=== PATIENT | female | born 1940 | race Caucasian/White ===

== ENCOUNTER → 2019-09-01 15:19 | Outpatient (CLI) | payer MEDICARE, SELFPAY ==
[2019-09-01 17:47] LABS: Anion Gap 12.2 mEq/L (5-15); Blood Urea Nitrogen 27 mg/dl (7-17); Calcium 9.4 mg/dl (8.4-10.2); Carbon Dioxide 24 mmol/L (22.0-30.0); Chloride 103 mmol/L (98-107); Estimated Glomerular Filt Rate 40 ml/min (>60); GFR (African American) 48 ML/MIN (>60); Glucose 120 mg/dl (74-100); Potassium 4.2 mmoL/L (3.5-5.1); Sodium 135 mmol/L (136-145)
== END ==
PROVIDERS: Visit Provider Internal Medicine
DX: R18.8 Other ascites (principal)
CPT/HCPCS: 36415; 80048

== ENCOUNTER 2019-09-09 16:00 | Outpatient (RCR) | payer MEDICARE, SELFPAY ==
--- NOTE | 2019-08-11 09:24 | HMH.PTOPWND ---
Rehab Outpt Wound Evaluation Rehab OP Wound Evaluation Start: 08/11/19 09:06 Freq: Status: Active Protocol: Document 08/11/19 09:06 CHLOEFARNAZ (Rec: 08/11/19 09:23 [email or web address] [id number]) Electronically Signed By Marko Suresh, KELLEN 08/11/19 09:06 Subjective/History History History This is the intial wound clinic evaluation for Jocelyn Rodriguez. Pt is a 79 y/o female referred to wound clinic for care of 2 non- healing wounds on L foot. Pt reports wounds opened up ~ mid -june. Pt reports her DPM has been treating them but wants pt to cont w/ wound care . Subjective Subjective Pt reports she is diabetic and has PIZANO, w/ low platelet count. Pt reports her last A1C was 6.6. Wound Eval Subjective History Subjective diabetic foot ulcers on L foot opened around Jun 23 Wound Left Lower Great Toe Wound Type Diabetic Foot Ulcer Wound Length (cm) 1.0 Wound Width (cm) 0.7 Wound Bed Appearance Dusky Red Percentage Granulated (%) 100 Wound Margins Description Roll Under Edges Undermining Position 12-12 Undermining Depth (cm) 0.3 Drainage Description Sanguineous Drainage Amount Scant Drainage Odor No Odor Dressing Status Dry & Intact Wound Topical Solution/Irrigant Antibiotic Irrigant Primary Dressing Silver Dressing Comment tegederm ag mesh Wound Secondary Dressing Type Absorbant Pad Comment optifoam border light Wound Debridement Method Sharps Wound Debridement Amount of Tissue Minimal Removed Wound Debridement Result Stopped Due to Bleeding Dressing Change Date 08/11/19 Dressing Change Patient Tolerance Tolerated Well Left Lateral Foot Wound Type Diabetic Foot Ulcer Is This a Chronic Wound Yes Wound Length (cm) 2.0 Wound Width (cm) 1.5 Wound Bed Appearance Dusky Red,Necrotic,Undermining Percentage Granulated (%) 50 Percentage of Eschar (Black) (%) 50 Wound Margins Description undermining callus Undermining Position 12-12 Undermining Depth (cm) 0.3 Surrounding Tissue Temperature Warm Drainage Description Sanguineous
== END 2019-09-09 17:00 | disposition home or self-care (01) ==
LOC: PT 16:00
PROVIDERS: PCP Nurse Practitioner Family; Visit Provider Nurse Practitioner Family
DX: L97.529 Non-pressure chronic ulcer of other part of left foot with unspecified severity (principal)
CPT/HCPCS: 29580; 97140; 97161; 97597

== ENCOUNTER → 2019-11-25 11:24 | Outpatient (CLI) | payer MEDICARE, SELFPAY ==
--- NOTE | 2019-11-25 | CA_ITS ---
APPROVED REPORT Right Lower Extremity Venous Study for DVT. Celery Wrapper: JOYCE Indications Lower Extremity Pain: Right Lower Extremity Edema: Right Ulcer Lower Extremity Swelling: Right Patient went for wound care today for a ulcer on left foot. Therapist noted increased edema and notified physician. Venous doppler was ordered to rule out DVT. Patient is morbidly obese and had difficulty tolerating compression throughout exam. Limited scanning. Risk Factors Immobility Obesity Vein Imaging FEM (L): compressive, spontaneous, phasic, augmentation POP (L): compressive, spontaneous, phasic, augmentation PTV (L): Not Visualized GSV (L): Compressible SSV (L): Compressible Peroneals (L):Not Visualized GAS (L): Compressible Findings No evidence of DVT or superficial thrombophlebitis in the veins scanned of the left lower extremity. Conclusion No evidence of DVT or superficial thrombophlebitis in the veins scanned of the left lower extremity. Electronically signed by : Pierre Dan MD 11/25/2019 16:30:46
[2019-11-25 12:41] LABS: Basophils % 0.5 % (0.1-2.0); Eosinophils # 0.1 K/mm3 (0.0-0.4); Eosinophils % 2.2 % (0.1-12.0); Hematocrit 35.9 % (37.0-47.0); Hemoglobin 11.8 g/dL (12.2-16.2); Lymphocytes # 0.9 K/mm3 (0.7-4.5); Lymphocytes % 21.7 % (10-50); Mean Corpuscular Hemoglobin 32.6 pg (27.0-31.2); Mean Corpuscular Volume 98.8 fl (81-99); Mean Platelet Volume 8.4 fl (7.4-10.4); Monocytes # 0.5 K/mm3 (0.1-1.0); Neutrophils # 2.4 K/mm3 (1.8-7.8); Neutrophils % 62.6 % (37.0-80.0); Platelet Count 63 K/mm3 (142-424); Red Blood Count 3.64 M/mm3 (4.20-5.40); Red Cell Distribution Width 14.6 % (11.5-17.5); White Blood Count 3.9 K/mm3 (4.8-10.8)
[2019-11-25 12:50] LABS: INR 1.41 (0.9-1.1); Prothrombin Time 14.4 seconds (9.4-11.8)
[2019-11-25 13:34] LABS: Alanine Aminotransferase 26 U/L (12-78); Albumin Level 3.1 g/dl (3.5-5.0); Albumin/Globulin Ratio 0.9 (1.1-1.8); Alkaline Phosphatase 226 U/L (38-126); Anion Gap 8.9 mEq/L (5-15); Aspartate Amino Transferase 43 U/L (14-36); Bilirubin,Total 2.5 mg/dl (0.2-1.3); Blood Urea Nitrogen 20 mg/dl (7-17); Calcium 9.4 mg/dl (8.4-10.2); Carbon Dioxide 27 mmol/L (22.0-30.0); Chloride 101 mmol/L (98-107); Estimated Glomerular Filt Rate 48 ml/min (>60); GFR (African American) 58 ML/MIN (>60); Globulin 3.5 g/dL (1.3-3.2); Glucose 168 mg/dl (74-100); Potassium 3.9 mmoL/L (3.5-5.1); Sodium 133 mmol/L (136-145); Total Protein,Serum 6.6 g/dl (6.3-8.2)
[2019-11-26 10:37] LABS: AFP, Tumor Marker 4.4 ng/mL (0.0-8.3)
== END ==
PROVIDERS: Visit Provider Nurse Practitioner Family
DX: M79.89 Other specified soft tissue disorders (principal); K74.60 Unspecified cirrhosis of liver; R18.8 Other ascites
CPT/HCPCS: 36415; 80053; 82105; 83735; 85025; 85610; 93971

== ENCOUNTER → 2019-12-01 10:51 | Outpatient (CLI) | payer MEDICARE, SELFPAY ==
[2019-12-01 11:29] LABS: Basophils % 0.3 % (0.1-2.0); Eosinophils # 0.1 K/mm3 (0.0-0.4); Eosinophils % 4.3 % (0.1-12.0); Hematocrit 35.8 % (37.0-47.0); Hemoglobin 11.7 g/dL (12.2-16.2); Lymphocytes # 0.8 K/mm3 (0.7-4.5); Lymphocytes % 25.8 % (10-50); Mean Corpuscular HGB Conc 32.8 g/dL (31.8-35.4); Mean Corpuscular Hemoglobin 31.7 pg (27.0-31.2); Mean Corpuscular Volume 96.7 fl (81-99); Monocytes # 0.4 K/mm3 (0.1-1.0); Monocytes % 12.7 % (1.7-9.3); Neutrophils # 1.8 K/mm3 (1.8-7.8); Neutrophils % 56.9 % (37.0-80.0); Platelet Count 52 K/mm3 (142-424); Red Cell Distribution Width 14.9 % (11.5-17.5); White Blood Count 3.2 K/mm3 (4.8-10.8)
[2019-12-01 14:22] LABS: Chloride 101 mmol/L (98-107); Sodium 132 mmol/L (136-145)
[2019-12-01 14:23] LABS: Potassium 4.3 mmoL/L (3.5-5.1)
[2019-12-01 14:25] LABS: Alanine Aminotransferase 27 U/L (12-78); Alkaline Phosphatase 258 U/L (38-126); Aspartate Amino Transferase 49 U/L (14-36); Bilirubin,Total 1.7 mg/dl (0.2-1.3); Blood Urea Nitrogen 17 mg/dl (7-17); Estimated Glomerular Filt Rate 48 ml/min (>60); GFR (African American) 58 ML/MIN (>60)
[2019-12-01 14:26] LABS: Albumin Level 2.8 g/dl (3.5-5.0); Albumin/Globulin Ratio 0.8 (1.1-1.8); Anion Gap 12.3 mEq/L (5-15); Calcium 8.8 mg/dl (8.4-10.2); Carbon Dioxide 23 mmol/L (22.0-30.0); Globulin 3.4 g/dL (1.3-3.2); Glucose 111 mg/dl (74-100); Total Protein,Serum 6.2 g/dl (6.3-8.2)
== END ==
PROVIDERS: Visit Provider Nurse Practitioner Family
DX: R60.9 Edema, unspecified (principal)
CPT/HCPCS: 36415; 80053; 85025

== ENCOUNTER → 2019-12-07 11:23 | Outpatient (CLI) | payer MEDICARE, SELFPAY ==
[2019-12-07 11:44] LABS: Basophils % 0.5 % (0.1-2.0); Eosinophils # 0.1 K/mm3 (0.0-0.4); Eosinophils % 4.2 % (0.1-12.0); Hematocrit 34.8 % (37.0-47.0); Hemoglobin 11.6 g/dL (12.2-16.2); Lymphocytes # 0.7 K/mm3 (0.7-4.5); Mean Corpuscular HGB Conc 33.4 g/dL (31.8-35.4); Mean Corpuscular Hemoglobin 32.5 pg (27.0-31.2); Mean Corpuscular Volume 97.1 fl (81-99); Mean Platelet Volume 8.8 fl (7.4-10.4); Monocytes # 0.2 K/mm3 (0.1-1.0); Monocytes % 7.7 % (1.7-9.3); Neutrophils # 1.8 K/mm3 (1.8-7.8); Neutrophils % 62.7 % (37.0-80.0); Platelet Count 63 K/mm3 (142-424); Red Blood Count 3.58 M/mm3 (4.20-5.40); Red Cell Distribution Width 14.7 % (11.5-17.5); White Blood Count 2.9 K/mm3 (4.8-10.8)
[2019-12-07 13:35] LABS: Chloride 102 mmol/L (98-107)
[2019-12-07 13:36] LABS: Potassium 4.5 mmoL/L (3.5-5.1); Sodium 133 mmol/L (136-145)
[2019-12-07 13:38] LABS: Alanine Aminotransferase 23 U/L (12-78); Aspartate Amino Transferase 46 U/L (14-36); Bilirubin,Total 1.9 mg/dl (0.2-1.3); Blood Urea Nitrogen 22 mg/dl (7-17); Estimated Glomerular Filt Rate 40 ml/min (>60); GFR (African American) 48 ML/MIN (>60)
[2019-12-07 13:39] LABS: Albumin Level 2.7 g/dl (3.5-5.0); Albumin/Globulin Ratio 0.8 (1.1-1.8); Alkaline Phosphatase 250 U/L (38-126); Anion Gap 13.5 mEq/L (5-15); Calcium 8.7 mg/dl (8.4-10.2); Carbon Dioxide 22 mmol/L (22.0-30.0); Globulin 3.4 g/dL (1.3-3.2); Glucose 191 mg/dl (74-100); Total Protein,Serum 6.1 g/dl (6.3-8.2)
== END ==
PROVIDERS: Visit Provider Nurse Practitioner Family
DX: D72.819 Decreased white blood cell count, unspecified (principal); K75.81 Nonalcoholic steatohepatitis (NASH)
CPT/HCPCS: 36415; 80053; 85025

== ENCOUNTER → 2019-12-14 12:03 | Outpatient (CLI) | payer MEDICARE, SELFPAY ==
--- NOTE | 2019-12-14 | US_ITS ---
APPROVED REPORT Exam Type: Ankle to Brachial Index Catering Assistant: RT Chung(R) Indications Claudication: Bilaterally Non-healing Ulcer: Bilaterally Edema Risk Factors Diabetes Pressures/Indices Right Indices Left Indices Brachial 142.00 mmHg Brachial 143.00 mmHg Low Thigh 144.00 mmHg 1.01 Low Thigh 130.00 mmHg 0.91 Calf 151.00 mmHg 1.06 Calf 145.00 mmHg 1.01 Ankle(PT) 152.00 mmHg 1.06 Ankle(PT) 138.00 mmHg 0.97 Ankle(DP) 148.00 mmHg 1.03 Ankle(DP) 144.00 mmHg 1.01 Digit 92.00 mmHg 0.64 Digit 105.00 mmHg 0.73 Findings RT ERMELINDA=1.1 LT ERMELINDA=1.0 RT TBI=0.6 LT TBI=0.7 Diminished waveforms right thigh Normal pulses Conclusion RT ERMELINDA=1.1 LT ERMELINDA=1.0 RT TBI=0.6 LT TBI=0.7 Diminished waveforms right thigh Normal pulses Normal ERMELINDA Electronically signed by : Pierre Dan MD 12/14/2019 16:16:25
[2019-12-14 12:35] LABS: Alanine Aminotransferase 25 U/L (12-78); Albumin Level 2.9 g/dl (3.5-5.0); Albumin/Globulin Ratio 0.8 (1.1-1.8); Alkaline Phosphatase 238 U/L (38-126); Anion Gap 13.4 mEq/L (5-15); Aspartate Amino Transferase 49 U/L (14-36); Bilirubin,Total 1.5 mg/dl (0.2-1.3); Blood Urea Nitrogen 24 mg/dl (7-17); Calcium 9.1 mg/dl (8.4-10.2); Carbon Dioxide 26 mmol/L (22.0-30.0); Chloride 99 mmol/L (98-107); Estimated Glomerular Filt Rate 40 ml/min (>60); GFR (African American) 48 ML/MIN (>60); Globulin 3.5 g/dL (1.3-3.2); Glucose 202 mg/dl (74-100); Potassium 4.4 mmoL/L (3.5-5.1); Sodium 134 mmol/L (136-145); Total Protein,Serum 6.4 g/dl (6.3-8.2)
== END ==
PROVIDERS: PCP Nurse Practitioner Family; Visit Provider Nurse Practitioner Family
DX: R09.89 Other specified symptoms and signs involving the circulatory and respiratory systems (principal); R60.9 Edema, unspecified; N18.3 Chronic kidney disease, stage 3 (moderate)
CPT/HCPCS: 36415; 80053; 93923

== ENCOUNTER 2019-12-21 11:00 | Outpatient (RCR) | payer MEDICARE, SELFPAY | END 2019-12-21 11:05 | disposition home or self-care (01) | LOC: PT 11:00 | PROVIDERS: PCP Nurse Practitioner Family; Visit Provider Nurse Practitioner Family | DX: L97.922 Non-pressure chronic ulcer of unspecified part of left lower leg with fat layer exposed (principal) | CPT/HCPCS: 29580; 97140; 97161; 97164; 97597 ==

== ENCOUNTER → 2019-12-21 11:44 | Outpatient (CLI) | payer MEDICARE, SELFPAY ==
[2019-12-21 12:12] LABS: Basophils % 0.2 % (0.1-2.0); Eosinophils # 0.2 K/mm3 (0.0-0.4); Eosinophils % 5.1 % (0.1-12.0); Hematocrit 34.7 % (37.0-47.0); Hemoglobin 11.5 g/dL (12.2-16.2); Lymphocytes # 0.8 K/mm3 (0.7-4.5); Lymphocytes % 25.7 % (10-50); Mean Corpuscular HGB Conc 33.2 g/dL (31.8-35.4); Mean Corpuscular Hemoglobin 32.1 pg (27.0-31.2); Mean Corpuscular Volume 96.8 fl (81-99); Monocytes # 0.4 K/mm3 (0.1-1.0); Neutrophils # 1.6 K/mm3 (1.8-7.8); Red Blood Count 3.58 M/mm3 (4.20-5.40); Red Cell Distribution Width 14.9 % (11.5-17.5)
[2019-12-21 12:28] LABS: Ammonia 31 umol/L (9-30)
[2019-12-21 13:01] LABS: Platelet Count 45 K/mm3 (142-424)
[2019-12-21 13:24] LABS: Alanine Aminotransferase 32 U/L (12-78); Albumin/Globulin Ratio 0.9 (1.1-1.8); Alkaline Phosphatase 212 U/L (38-126); Anion Gap 13.9 mEq/L (5-15); Aspartate Amino Transferase 82 U/L (14-36); Bilirubin,Total 2.6 mg/dl (0.2-1.3); Blood Urea Nitrogen 26 mg/dl (7-17); Carbon Dioxide 22 mmol/L (22.0-30.0); Chloride 103 mmol/L (98-107); Estimated Glomerular Filt Rate 44 ml/min (>60); GFR (African American) 53 ML/MIN (>60); Globulin 3.5 g/dL (1.3-3.2); Glucose 342 mg/dl (74-100); Potassium 3.9 mmoL/L (3.5-5.1); Sodium 135 mmol/L (136-145); Total Protein,Serum 6.5 g/dl (6.3-8.2)
[2019-12-21 13:56] LABS: Thyroid Stimulating Hormone 1.83 uIU/mL (0.465-4.68)
== END ==
PROVIDERS: Visit Provider Nurse Practitioner Family
DX: R41.0 Disorientation, unspecified (principal); K75.81 Nonalcoholic steatohepatitis (NASH); K72.90 Hepatic failure, unspecified without coma
CPT/HCPCS: 36415; 80053; 82140; 84443; 85025

== ENCOUNTER → 2020-01-13 10:42 | Outpatient (CLI) | payer MEDICARE, SELFPAY ==
[2020-01-13 11:05] LABS: Basophils % 0.5 % (0.1-2.0); Eosinophils # 0.1 K/mm3 (0.0-0.4); Eosinophils % 3.1 % (0.1-12.0); Hematocrit 35.9 % (37.0-47.0); Hemoglobin 12.2 g/dL (12.2-16.2); Lymphocytes # 0.9 K/mm3 (0.7-4.5); Lymphocytes % 24.2 % (10-50); Mean Corpuscular HGB Conc 33.9 g/dL (31.8-35.4); Mean Corpuscular Hemoglobin 32.7 pg (27.0-31.2); Mean Corpuscular Volume 96.4 fl (81-99); Monocytes # 0.4 K/mm3 (0.1-1.0); Monocytes % 10.5 % (1.7-9.3); Neutrophils # 2.2 K/mm3 (1.8-7.8); Neutrophils % 61.7 % (37.0-80.0); Red Blood Count 3.72 M/mm3 (4.20-5.40); Red Cell Distribution Width 14.8 % (11.5-17.5); White Blood Count 3.5 K/mm3 (4.8-10.8)
[2020-01-13 11:09] LABS: Platelet Count 47 K/mm3 (142-424)
[2020-01-13 11:27] LABS: Ammonia 64 umol/L (9-30)
[2020-01-13 11:36] LABS: Alanine Aminotransferase 26 U/L (12-78); Albumin Level 3.2 g/dl (3.5-5.0); Albumin/Globulin Ratio 0.9 (1.1-1.8); Alkaline Phosphatase 275 U/L (38-126); Anion Gap 13.1 mEq/L (5-15); Aspartate Amino Transferase 52 U/L (14-36); Bilirubin,Total 2.2 mg/dl (0.2-1.3); Blood Urea Nitrogen 27 mg/dl (7-17); Calcium 9.3 mg/dl (8.4-10.2); Carbon Dioxide 27 mmol/L (22.0-30.0); Chloride 93 mmol/L (98-107); Estimated Glomerular Filt Rate 36 ml/min (>60); GFR (African American) 44 ML/MIN (>60); Globulin 3.6 g/dL (1.3-3.2); Glucose 238 mg/dl (74-100); Potassium 5.1 mmoL/L (3.5-5.1); Sodium 128 mmol/L (136-145); Total Protein,Serum 6.8 g/dl (6.3-8.2)
== END ==
PROVIDERS: Visit Provider Nurse Practitioner Family
DX: K72.90 Hepatic failure, unspecified without coma (principal); R53.1 Weakness; I10 Essential (primary) hypertension
CPT/HCPCS: 36415; 80053; 82140; 85025

== ENCOUNTER → 2020-07-16 12:15 | Outpatient (CLI) | payer MEDICARE, SELFPAY ==
--- NOTE | 2020-07-16 | XR_ITS ---
PROCEDURE: XR COCCYX 2V CLINICAL INDICATION: Low back pain following injury COMPARISON: No exams were available for comparison FINDINGS: There is anterior angulation with anterior displacement the lower sacrum/upper coccyx consistent with a fracture. This is of unknown age. There are no previous exams available for comparison. IMPRESSION: Lower sacral/upper coccyx fracture age indeterminate Dictated by: Pierre Dan MD 07/16/2020 14:28 Pierre Dan MD in [facility] 07/16/2020 14:28
--- NOTE | 2020-07-16 | XR_ITS ---
PROCEDURE: XR LUMBAR SPINE MIN 4V CLINICAL INDICATION: Low back pain COMPARISON: No exams were available for comparison FINDINGS: There is mild lumbar scoliosis convex left. There is multilevel degenerative disc disease within the lumbar spine T11-S1 with multilevel anterior osteophytes. No acute fracture or dislocation. No lytic or blastic change. Facet arthritic changes are present at L3-L4 L5 and S1. There is a right hip prosthesis noted. IMPRESSION: Multilevel lumbar spondylosis with scoliosis. No evidence of acute fracture Dictated by: Pierre Dan MD 07/16/2020 14:25 Pierre Dan MD in [facility] 07/16/2020 14:25
== END ==
PROVIDERS: PCP Nurse Practitioner Family; Visit Provider Nurse Practitioner Family
DX: S39.92XA Unspecified injury of lower back, initial encounter (principal); W19.XXXA Unspecified fall, initial encounter
CPT/HCPCS: 72110; 72220